=== PATIENT | male | born 1980 | race Two or more races ===

== ENCOUNTER 2021-03-17 09:30 | Emergency (ER) | payer OTHER ==
[~2021-03-17] VITALS: Ht 172.7 cm; Wt 86.4 kg
[2021-03-17 09:50] VITALS: BP 123/88
[2021-03-17] MEDS ORDERED: LIDOCAINE 2% VISCOUS 15 ML SOLUTION UDCUP PO ONE (10:45)
[2021-03-17] MEDS ORDERED: PERTUSS(ACELL),DIPH,TET VAC/PF 0.5 ML SYRINGE IM. ONE (11:15)
[2021-03-17] MEDS ORDERED: LIDOCAINE 1%/EPI 1:200,000/PF 10 ML VIAL ID ONE (13:00)
== END 2021-03-17 13:44 | disposition home or self-care (01) ==
LOC: EMS 09:30
DX: S31.811A Laceration without foreign body of right buttock, initial encounter (principal); W45.8XXA Other foreign body or object entering through skin, initial encounter; Y93.89 Activity, other specified; Y92.89 Other specified places as the place of occurrence of the external cause; Y99.8 Other external cause status
CPT/HCPCS: 12034; 90471; 90715; 99284; J3490